=== PATIENT | female | born 1980 | race Caucasian/White ===

== ENCOUNTER 2018-12-05 19:22 | Emergency (ER) | payer OTHER ==
[~2018-12-05] VITALS: Ht 162.6 cm; Wt 103.0 kg
[2018-12-05 19:26] VITALS: Ht 162.6 cm; Wt 103.0 kg
[2018-12-05] MEDS ORDERED: SOD CHLORIDE 0.9% 1,000 ML IV STA (20:42)
[2018-12-05] MEDS ORDERED: morphine 2 MG INJ IV STA (20:42)
[2018-12-05] MEDS ORDERED: KETOROLAC 30 MG INJ IV STA (20:42)
[2018-12-05] MEDS ORDERED: ONDANSETRON 4 MG INJ IV STA (20:42)
--- NOTE | 2018-12-05 21:09 | ERD ---
ER Documentation Chief Complaint Chief Complaint Pelvic pain vaginal bleeding started wednesday HPI 38-year-old female presents with complaint of pelvic pain and vaginal bleeding. States the vaginal bleeding started on Wednesday and the pelvic pain started this morning. In addition, she states that she has not gotten her period for 9 years prior to this episode. Says that the periods have been heavy and she is been passing clots. She said she is has been through 3 packs today. Denies any dysuria, flank pain, nausea, vomiting, diarrhea, lightheadedness, syncope, chest pain, palpitations, fevers. ROS All systems reviewed and are negative except as per history of present illness. Medications Home Meds Active Scripts Hydrocodone/Acetaminophen (Furlong 5-325 Tablet) 1 Each Tablet, 1 TAB PO Q6H PRN for PAIN, #10 TAB Prov:CARMEN BLANCO 12/05/18 Ibuprofen* (Motrin*) 600 Mg Tab, 600 MG PO Q6 for cramping, #30 TAB Prov:CARMEN BLANCO 12/05/18 Allergies Allergies: Coded Allergies: No Known Allergy (Unverified , 12/05/18) PMhx/Soc Medical and Surgical Hx: pt denies Medical Hx, pt denies Surgical Hx Hx Alcohol Use: No Hx Substance Use: No Hx Tobacco Use: No Smoking Status: Never smoker FmHx Family History: No diabetes, No coronary disease, No other Physical Exam Vitals Vital Signs Date Temp Pulse Resp B/P (MAP) Pulse Ox O2 O2 Flow FiO2 Time Delivery Rate 12/05/18 98.2 77 19 145/65 99 Room Air 23:39 (91) 12/05/18 98.4 76 18 179/80 100 19:26 (113) Physical Exam Const: No acute distress Head: Atraumatic Eyes: Normal Conjunctiva ENT: Normal External Ears, Nose and Mouth. Neck: Full range of motion. No meningismus. Resp: Clear to auscultation bilaterally Cardio: Regular rate and rhythm, no murmurs Abd: Soft, non tender, non distended. Normal bowel sounds Skin: No petechiae or rashes Back: No midline or flank tenderness Pelvic: Performed credentialing analyst present. Pooling of blood noted at the cervix. No trauma or lacerations noted to the vagina. Ext: No cyanosis, or edema Neur: Awake and alert Psych: Normal Mood and Affect Result Diagram: 12/05/18209912/05/18 2100 Results 24 hrs Laboratory Tests Test 12/05/18 21:00 White Blood Count 14.6 10^3/ul Red Blood Count 3.39 10^6/ul Hemoglobin 10.8 g/dl Hematocrit 31.9 % Mean Corpuscular Volume 94.1 fl Mean Corpuscular Hemoglobin 31.9 pg Mean Corpuscular Hemoglobin Concent 33.9 g/dl Red Cell Distribution Width 12.3 % Platelet Count 360 10^3/UL Mean Platelet Volume 10.4 fl Immature Granulocytes % 0.300 % Neutrophils % 52.0 % Lymphocytes % 38.9 % Monocytes % 6.9 % Eosinophils % 1.6 % Basophils % 0.3 % Nucleated Red Blood Cells % 0.0 /100WBC Immature Granulocytes # 0.050 10^3/ul Neutrophils # 7.6 10^3/ul Lymphocytes # 5.7 10^3/ul Monocytes # 1.0 10^3/ul Eosinophils # 0.2 10^3/ul Basophils # 0.1 10^3/ul Nucleated Red Blood Cells # 0.0 10^3/ul Urine Color RED Urine Clarity CLOUDY Urine pH 6.0 Urine Specific [place] 1.020 Urine Ketones NEGATIVE mg/dL Urine Nitrite NEGATIVE mg/dL Urine Bilirubin NEGATIVE mg/dL Urine Urobilinogen NEGATIVE mg/dL Urine Leukocyte Esterase TRACE Rosemary/ul Urine Microscopic RBC > 182 /HPF Urine Microscopic WBC > 182 /HPF Urine Squamous Epithelial Cells FEW /HPF Urine Mucus FEW /HPF Urine Hemoglobin 3+ mg/dL Urine Glucose NEGATIVE mg/dL Urine Total Protein 2+ mg/dl Sodium Level 139 mmol/L Potassium Level 3.9 mmol/L Chloride Level 105 mmol/L Carbon Dioxide Level 26 mmol/L Anion Gap 8 Blood Urea Nitrogen 16 mg/dl Creatinine 0.61 mg/dl Est Glomerular Filtrat Rate mL/min > 60 mL/min Glucose Level 97 mg/dl Calcium Level 9.1 mg/dl Total Bilirubin 0.3 mg/dl Direct Bilirubin 0.00 mg/dl Indirect Bilirubin 0.3 mg/dl Aspartate Amino Transf (AST/SGOT) 23 IU/L Alanine Aminotransferase (ALT/SGPT) 19 IU/L Alkaline Phosphatase 61 IU/L Total Protein 8.0 g/dl Albumin 4.1 g/dl Globulin 3.90 g/dl Albumin/Globulin Ratio 1.05 Lipase 107 U/L Current Medications Medications Dose Sig/Erik Start Time Status Last (Trade) Ordered Route PRN Stop Time Admin Dose Reason Admin Sodium 1,000 ml @ Q1H STAT 12/05/18 DC 12/05/18 Chloride 1,000 mls/hr IV 20:42 21:19 12/05/18 21:41 Morphine 2 mg ONCE STAT 12/05/18 DC 12/05/18 Sulfate IV 20:42 21:19 (morphine) 12/05/18 20:45 Ondansetron 4 mg ONCE STAT 12/05/18 DC 12/05/18 HCl (Zofran IV 20:42 21:20 Inj) 12/05/18 20:45 Ketorolac 30 mg ONCE STAT 12/05/18 DC 12/05/18 Tromethamine IV 20:42 21:20 (Toradol) 12/05/18 20:45 Procedures/MDM DIAGNOSTIC IMAGING REPORT Patient: LISSY TEMPLE : 1980 Age: 38 Sex: F MR #: [id number] DOS: 12/05/182041 Ordering MD: CARMEN BLANCO Location: [facility] Room/Bed: PROCEDURE: US Pelvis CLINICAL INDICATION: Vaginal bleeding. TECHNIQUE: Sonographic evaluation of the pelvis was performed utilizing both transabdominal and transvaginal technique. Images were reviewed on the high- resolution PACS workstation. COMPARISON: No prior studies are available for comparison. FINDINGS: The uterus is normal in size, echogenicity, and morphology. The uterus is 10.4 x 5.8 x 6.8 cm. The endometrium is thickened measuring 1.52 cm diameter. No abnormal vascularity is present. The right ovary measures 3.1 x 1.7 x 2 cm. The left ovary measures 3.1 x 1.8 x 1.8 cm. The ovaries are symmetric in size, echogenicity, and morphology. Color doppler vascular flow is demonstrated to both ovaries. There are no adnexal masses. There is no free fluid in the pelvis. IMPRESSION: Nonspecific mildly thickened endometrium. No focal mass identified. Otherwise negative. RPTAT: [facility]VK .Teofilo Blevins MD, Date Time Electronically viewed and signed by .Teofilo Blevins MD, MD on 12/05/2018 21:52 .K/ CC: CARMEN BLANCO [phone] MDM: Patient's hemoglobin was mildly depressed but patient was asymptomatic, denying lightheadedness, palpitations, chest pain, syncope. Pelvic exam was performed and there was no sign of acute hemorrhage. I discussed the case with Dr. Hull who is the on-call top hat body maker she stated that patient would be fit for discharge and advised to tell patient she would need to follow up with her primary for endometrial biopsy. Patient was discharged with strict precautions to return if there is continued bleeding or pelvic pain or any signs of symptoms of anemia. I advised patient that she would need to get a biopsy for definitive diagnosis of her condition from her primary care physician. Patient understood and agreed to follow-up. I have Low suspicion for symptomatic anemia, shock, or any other emergent conditions. Patient discharged with strict ER precautions, advised to follow up with PMD, all questions answered at discharge. Departure Diagnosis: Primary Impression: Dysfunctional uterine bleeding Condition: Stable CARMEN BLANCO Dec 05, 2018 21:09
[2018-12-05] MEDS ORDERED: IBUP-1542 PO (23:22)
[2018-12-05] MEDS ORDERED: HYDR-4011 PO (23:22)
[2018-12-05 23:39] VITALS: BP 145/65; PULSE 77; RESP 19
== END 2018-12-05 23:39 | disposition home or self-care (01) ==
LOC: FTE 19:22
DX: N93.8 Other specified abnormal uterine and vaginal bleeding (principal); R10.2 Pelvic and perineal pain
CPT/HCPCS: 36415; 76856; 80053; 81001; 83690; 85025; 96374; 96375; J1885; J2270; J2405; J7030; Z7502